=== PATIENT | male | born 1965 | race Caucasian/White ===

== ENCOUNTER 2017-03-21 23:10 | Emergency (ER) | payer OTHER ==
[~2017-03-21 23:10] MED LIST: ASPIRIN 81 MG TABLET, CHEWABLE ONE; ENOXAPARIN SODIUM INJ 30 MG/0.3 ML DISP.SYRIN ONE
[2017-03-21] MEDS ORDERED: NITROGLYCERIN/D5W 50 MG/250 ML RTUINJ IV ONE (23:31)
[2017-03-21] MEDS ORDERED: HYDRALAZINE HCL INJ/PF 20 MG/1 ML SDV ONE (23:38)
[2017-03-21] MEDS ORDERED: ENOXAPARIN SODIUM INJ 100 MG/1 ML DISP.SYRIN SUBCUT ONE (23:49)
--- NOTE | 2017-03-21 23:52 | EKG REPORT ---
SEVERITY:- ABNORMAL ECG - SINUS RHYTHM PROBABLE LEFT ATRIAL ABNORMALITY ANTERIOR INFARCT, ACUTE BORDERLINE PROLONGED QT INTERVAL : Confirmed by: Anahi Rivera 21-Mar-2017 23:51:38
--- NOTE | 2017-03-21 23:55 | ER Document Report ---
ED General - General Chief Complaint: Chest Pain > 30 Stated Complaint: CHEST PAIN Notes: Patient is 51-year-old male who presents with complaint of chest pain is substernal and nonradiating. No pain into the back. He says occasionally have some pain in his teeth. No difficulty breathing. He has a history of previous MIs. He said he has had 3 previous MIs and this feels just like his previous heart attacks. Symptoms started approximately an hour prior to arrival. He just moved here from [place]. He cannot find his nitro. He says he has not taken his medications last 2 days. He therefore took Plavix just before coming in. He does not take aspirin. No fevers. No leg pain or leg swelling. No other complaints at this time. TRAVEL OUTSIDE OF THE [place] IN LAST 30 DAYS: No - Related Data Allergies/Adverse Reactions: No Known Allergies Allergy (Unverified 03/22/17 00:54) Past Medical History - Social History Smoking Status: Unknown if Ever Smoked Frequency of alcohol use: None Drug Abuse: None Family History: CAD Review of Systems - Review of Systems Notes: My Normal Review Basic REVIEW OF SYSTEMS: CONSTITUTIONAL : Denies fever, chills, or sweats. Denies recent illness. EENT: Denies eye, ear, throat, or mouth pain or symptoms. Denies nasal or sinus congestion. CARDIOVASCULAR: Has chest pain. RESPIRATORY: Denies cough, cold, or chest congestion. Denies shortness of breath, difficulty breathing, or wheezing. GASTROINTESTINAL: Denies abdominal pain. Denies nausea, vomiting, or diarrhea. Denies constipation. Last BM: MUSCULOSKELETAL: Denies neck or back pain or joint pain or swelling. SKIN: Denies rash or skin lesions. HEMATOLOGIC : Is on Plavix. No recent rectal bleeding. No history of cancer. No history of intracranial bleeding. NEUROLOGICAL: Denies altered mental status or loss of consciousness. Denies headache. Denies weakness or paralysis or loss of use of either side. Denies problems with gait or speech. Denies sensory or motor loss. ALL OTHER SYSTEMS REVIEWED AND NEGATIVE. Physical Exam - Vital signs Vitals: Temp Pulse Resp BP Pulse Ox 97.7 F 94 16 204/111 H 96 03/21/17 23:12 03/21/17 23:12 03/21/17 23:12 03/21/17 23:12 03/21/17 23:12 - Notes Notes: General Appearance: Well nourished, alert, cooperative, no acute distress, no obvious discomfort. Vitals: reviewed, See vital signs table. Head: no swelling or tenderness to the head Eyes: PERRL, EOMI, Conjuctiva clear Mouth: No decreasd moisture Neck: Supple, no neck tenderness, No thyromegaly Lungs: No wheezing, No rales, No rhonci, No accessory muscle use, good air exchange bilaterally. Heart: Normal rate, Regular rythm, No murmur, no rub Abdomen: Normal BS, soft, No rigidity, No abdominal tenderness, No guarding, no rebound, no abdominal masses, no organomegaly Extremities: strength 5/5 in all extremities, good pulses in all extremities, no swelling or tenderness in the extremities, no edema. Skin: warm, dry, appropriate color, no rash Neuro: speech clear, oriented x 3, normal affect, responds appropriately to questions. Course - Re-evaluation Re-evalutation: 03/21/17 23:53 Helicopter will be her in 5 minutes. Were able to get helicopter transport immediately after the patient presented with STEMI. Patient also has hypertension. This most likely is related to his OR as well as the fact that the patient has not taken his anti-present medications for the last 2 days. I have started on nitro drip. Also given dose hydralazine. I was going to give abetalol but we are out of labetalol. He now is chest pain-free and says he feels very well. Clinically he looks well. I did do repeat EKG. His ST segment elevation is the same. Is not worsened. I did call and speak with Em Allred, Dr. Omar Guaman. He agrees to accept the patient for emergent transfer. Being that the patient does have the contraindication of hypertension and the fact that the [facility] within the next hour feels appropriate to withhold thrombolytics as I think the risks outweigh the benefits at this time. I did discuss this with the patient and his and they both agree want to hold off on thrombolytics as well. Patient is been given aspirin. He will be given Lovenox. I do not suspect dissection. He has no pain radiating to his back and he says this pain feels exactly like his previous MIs. His chest x-ray does not show widened mediastinum. 03/22/17 00:00 Patient's blood pressure is still high. I have ordered a dose of Lopressor. 03/22/17 00:03 Patient remains chest pain-free on the nitro drip. Helicopter is now landing. Blood pressure start and slowly downtrend. Systolic is now around 180. Diastolic is still above 110. Patient is receiving Lopressor because he developed mild tachycardia around 110. Patient's heart rate is currently 90. 03/22/17 00:25 Patient circuit cardio improved. Patient has just left via helicopter go [facility]. I did call [facility] speak with Dr. Omar Salas informed him that the patient is on his way. Again thrombolytics were held because patient had poorly controlled hypertension and also we can get the patient quickly to the [facility]. Giving thrombolytics would go against the relative contraindication of poorly controlled hypertension as well as because his heart cath to be to delay another 90 minutes. Being that the patient would be than 30 minutes it is seems that the risks outweigh the benefits of intravenous thrombolytics here as the patient will be able to get a heart cath soon and also the patient is completely chest pain-free and clinically looks well. Dictation of this chart was performed using voice recognition software; therefore, there may be some unintended grammatical errors. - Vital Signs Vital signs: Temp Pulse Resp BP Pulse Ox 97.7 F 96 16 199/116 H 96 03/22/17 00:18 03/22/17 00:18 03/22/17 00:18 03/22/17 00:18 03/22/17 00:18 - Laboratory Result Diagrams: 03/21/17 23:33 03/21/17 23:33 Laboratory results interpreted by me: 03/21/17 03/21/17 23:33 23:33 WBC 11.4 H RBC 5.65 H RDW 14.3 H Sodium 133.6 L Glucose 360 H Alkaline Phosphatase 154 H - EKG Interpretation by Me Additional EKG results interpreted by me: 03/21/17 23:59 EKG is reviewed and interpreted by me. EKG shows ST segment elevation in leads V2, V3, V4. Mild ST segment depression in leads V6. OH interval, QRS duration are within normal range. QTc interval is prolonged. EKG findings are consistent with ST elevation OR. Old EKG available for comparison. EKG #2 is reviewed and interpreted by me. EKG shows normal sinus rhythm with rate of [address] segment elevation in leads V2, V3, V4. Similar ST segment depression in leads V6. OH interval, QRS duration are within normal range. QTc interval is prolonged. Critical Care Note - Critical Care Note Total time excluding time spent on procedures (mins): 35 Comments: Critical care time for this patient not including time spent on procedures approximately 35 minutes due to management of treatment of ST elevation OR, arrangement for transfer, multiple re-evaluations, treatment of hypertension. Discharge - Discharge Clinical Impression: STEMI (ST elevation myocardial infarction) Qualifiers: Involved coronary artery: unspecified coronary artery Qualified Code(s): I21.3 - ST elevation (STEMI) myocardial infarction of unspecified site Condition: Stable Disposition: [facility]
[2017-03-21] MEDS ORDERED: METOPROLOL TARTRATE PF/INJ 5 MG/5 ML SDV IV ONE ×2 (23:57)
[2017-03-22] MEDS ORDERED: NITROGLYCERIN 0.4 MG/TAB 25 TAB/BOTTLE SL PRN (00:18)
[2017-03-22] MEDS ORDERED: NITROGLYCERIN 50 MG/D5W 250 ML IV PRN (00:19)
[2017-03-22 00:20] LABS: INTERNATIONAL RATION (INR) 0.94; PROTHROMBIN TIME 13.2 SEC (11.4-15.4)
[2017-03-22 00:24] VITALS: BP 199/116
[2017-03-22 00:24] LABS: ABSOLUTE BASOPHILS # (AUTO) 0.1 10^3/uL (0.0-0.2); ABSOLUTE EOSINOPHILS # (AUTO) 0.4 10^3/uL (0.0-0.6); ABSOLUTE LYMPHOCYTES (AUTO) 3.1 10^3/uL (0.5-4.7); ABSOLUTE MONOCYTES (AUTO) 1.1 10^3/uL (0.1-1.4); ABSOLUTE NEUT (AUTO) 6.8 10^3/uL (1.7-8.2); BASOPHILS % (AUTO) 0.6 % (0-2); EOSINOPHILS % (AUTO) 3.2 % (0-6); HEMATOCRIT 48.5 % (37.9-51.0); HEMOGLOBIN 16.3 g/dL (13.5-17.0); LYMPHOCYTES % (AUTO) 26.8 % (13-45); MEAN CORPUSCULAR HEMOGLOBIN 28.9 pg (27.0-33.4); MEAN CORPUSCULAR HGB CONC 33.7 g/dL (32.0-36.0); MEAN CORPUSCULAR VOLUME 86 fl (80-97); MONOCYTES % (AUTO) 9.4 % (3-13); PLATELET COUNT 222 10^3/uL (150-450); RED BLOOD COUNT 5.65 10^6/uL (4.35-5.55); RED CELL DISTRIBUTION WIDTH 14.3 % (11.5-14.0); TOTAL CELLS COUNTED % (AUTO) 100 %; WHITE BLOOD COUNT 11.4 10^3/uL (4.0-10.5)
[2017-03-22] MEDS ORDERED: HYDRALAZINE HCL INJ/PF 20 MG/1 ML SDV IV ONE (00:24)
--- NOTE | 2017-03-22 00:27 | RADIOLOGY REPORT (SQ) ---
EXAM DESCRIPTION: CHEST SINGLE VIEW CLINICAL HISTORY: chest pain COMPARISON: None. FINDINGS: Single frontal view of the chest. The cardiomediastinal silhouette has normal size and contour. No consolidation, pneumothorax, or pleural effusion. No acute osseous abnormalities. Upper abdominal soft tissues are unremarkable. Leads overlie the chest. IMPRESSION: 1. No acute pulmonary process identified.
[2017-03-22] MEDS ORDERED: ASPIRIN 81 MG TABLET, CHEWABLE PO ONE (00:30)
[2017-03-22] MEDS ORDERED: CLOPIDOGREL BISULFATE 75 MG TABLET PO ONE (00:30)
[2017-03-22] MEDS ORDERED: ENOXAPARIN SODIUM INJ 30 MG/0.3 ML DISP.SYRIN IV ONE (00:30)
[2017-03-22 00:31] LABS: ALANINE AMINOTRANSFERASE 30 U/L (21-72); ALKALINE PHOSPHATASE 154 U/L (38-126); ANION GAP 10 (5-19); ASPARTATE AMINO TRANSFERASE 18 U/L (17-59); BILIRUBIN,DIRECT 0.2 mg/dL (0.0-0.4); BILIRUBIN,TOTAL 0.3 mg/dL (0.2-1.3); BLOOD UREA NITROGEN 12 mg/dL (7-20); CALCIUM 9.4 mg/dL (8.4-10.2); CARBON DIOXIDE 24 mmol/L (22-30); CHLORIDE 100 mmol/L (98-107); GLUCOSE 360 mg/dL (75-110); POTASSIUM 4.1 mmol/L (3.6-5.0); SODIUM 133.6 mmol/L (137-145); TOTAL PROTEIN 6.5 g/dL (6.3-8.2)
--- NOTE | 2017-03-22 13:16 | EKG REPORT ---
SEVERITY:- ABNORMAL ECG - SINUS RHYTHM PROBABLE LEFT ATRIAL ABNORMALITY ANTERIOR INFARCT, POSSIBLY ACUTE .CORELATE CLINICALLY BORDERLINE PROLONGED QT INTERVAL : Confirmed by: Alyssa Dixon MD 22-Mar-2017 13:15:49
== END 2017-03-22 00:20 | disposition short-term general hospital (02) ==
LOC: ER 23:10
DX: I21.3 ST elevation (STEMI) myocardial infarction of unspecified site (principal); I10 Essential (primary) hypertension; R07.89 Other chest pain; J02.9 Acute pharyngitis, unspecified; I25.2 Old myocardial infarction; Z82.49 Family history of ischemic heart disease and other diseases of the circulatory system; Z79.02 Long term (current) use of antithrombotics/antiplatelets
CPT/HCPCS: 93005; 99291; 96372; 96375; 96365; 36415; 85025; 85610; 85730; 80053; 84484; 71045; 93010; J0360; J3490 ×2; J1650 ×2

== ENCOUNTER → 2019-04-06 | Outpatient (CLI) | payer OTHER ==
[2019-04-06 07:06] LABS: ABSOLUTE EOSINOPHILS # (AUTO) 0.3 10^3/uL (0.0-0.6); ABSOLUTE MONOCYTES (AUTO) 0.8 10^3/uL (0.1-1.4); ABSOLUTE NEUT (AUTO) 4.5 10^3/uL (1.7-8.2); BASOPHILS % (AUTO) 0.4 % (0-2); EOSINOPHILS % (AUTO) 4.6 % (0-6); HEMATOCRIT 44.1 % (37.9-51.0); HEMOGLOBIN 14.8 g/dL (13.5-17.0); LYMPHOCYTES % (AUTO) 26.6 % (13-45); MEAN CORPUSCULAR HEMOGLOBIN 28.5 pg (27.0-33.4); MEAN CORPUSCULAR HGB CONC 33.6 g/dL (32.0-36.0); MEAN CORPUSCULAR VOLUME 85 fl (80-97); MONOCYTES % (AUTO) 10.1 % (3-13); PLATELET COUNT 226 10^3/uL (150-450); RED CELL DISTRIBUTION WIDTH 14.1 % (11.5-14.0); SEGMENTED NEUTROPHILS % (AUTO) 58.3 % (42-78); TOTAL CELLS COUNTED % (AUTO) 100 %; WHITE BLOOD COUNT 7.6 10^3/uL (4.0-10.5)
[2019-04-06 07:12] LABS: INTERNATIONAL RATION (INR) 0.92; PROTHROMBIN TIME 12.3 SEC (11.4-15.4)
[2019-04-06 07:26] LABS: ANION GAP 12 (5-19); BLOOD UREA NITROGEN 12 mg/dL (7-20); CALCIUM 9.5 mg/dL (8.4-10.2); CARBON DIOXIDE 28 mmol/L (22-30); CHLORIDE 99 mmol/L (98-107); GLUCOSE 147 mg/dL (75-110); POTASSIUM 4.5 mmol/L (3.6-5.0)
== END ==
LOC: LAB 06:44
PROVIDERS: ATTEND Internal Medicine Cardiovascular Disease
DX: R07.9 Chest pain, unspecified (principal)
CPT/HCPCS: 36415; 80048; 83735; 85025; 85610